=== PATIENT | female | born 1970 | race Caucasian/White ===

== ENCOUNTER 2024-03-07 10:31 | Emergency (ER) | payer MEDICAID, OTHER ==
[~2024-03-07] VITALS: Ht 160 cm; Wt 77.0 kg
[2024-03-07 11:36] VITALS: BP 113/84; PULSE 100; RESP 16; TEMP 96.8; O2SAT 96
[2024-03-07 11:43] LABS: Basophils # (auto) 0.1 10 ^3/uL (0-0.2); Hemoglobin 10.8 g/dL (12.2-16.2); Monocytes # (auto) 0.7 10 ^3/uL (0-1.3); Neutrophils # (auto) 7.7 10 ^3/uL (1.6-8.6)
[2024-03-07 11:44] LABS: Basophils % (auto) 0.5 % (0.0-2.0); Eosinophils # (auto) 0.6 10 ^3/uL (0-0.8); Eosinophils % (auto) 5.8 % (0.0-7.0); Hematocrit 33.7 % (36.0-46.0); Lymphocytes # (auto) 1.8 10 ^3/uL (0.4-5.4); Lymphocytes % (auto) 16.4 % (10.0-50.0); Mean Corpuscular Volume 74.9 fL (80.0-100.0); Monocytes % (auto) 6.4 % (0.0-12.0); Neutrophils % (auto) 70.9 % (37.0-80.0); Red Cell Distribution Width 17.2 % (11.8-14.3); White Blood Cell 10.9 10^3/uL (4.4-10.8)
[2024-03-07 11:54] LABS: Chloride 105 mmol/L (98-107); Potassium 4.2 mmol/L (3.5-5.1); Sodium 139 mmol/L (136-145)
[2024-03-07 11:55] LABS: Anion Gap 5 (5-15); Calcium 9.6 mg/dL (8.5-10.1); Carbon Dioxide 29 mmol/L (20-30)
[2024-03-07 12:00] LABS: BUN/Creatinine Ratio 15.2 (10.0-20.0); Blood Urea Nitrogen 12 mg/dL (9-23); Glucose 112 mg/dL (74-106)
[2024-03-07] MEDS ORDERED: AMOX500T86 PO (12:11)
[2024-03-07] MEDS ORDERED: PROM1SOL4 PO (12:11)
== END 2024-03-07 12:21 | disposition home or self-care (01) ==
LOC: ER 10:31
DX: J20.9 Acute bronchitis, unspecified (principal); R91.8 Other nonspecific abnormal finding of lung field; I10 Essential (primary) hypertension; E78.5 Hyperlipidemia, unspecified
CPT/HCPCS: 36415; 71046; 80048; 85025

== ENCOUNTER 2024-04-07 01:56 | Emergency (ER) | payer MEDICAID ==
[~2024-04-07] VITALS: Ht 160 cm; Wt 77.3 kg
[~2024-04-07 01:56] MED LIST: AMOX500T86 PO; PROM1SOL4 PO
[2024-04-07 06:12] LABS: Chloride 100 mmol/L (98-107); Potassium 4.4 mmol/L (3.5-5.1); Sodium 135 mmol/L (136-145)
[2024-04-07 06:13] LABS: Anion Gap 7 (5-15); Calcium 9.9 mg/dL (8.7-10.4); Carbon Dioxide 28 mmol/L (20-30)
[2024-04-07 06:18] LABS: BUN/Creatinine Ratio 21.8 (10.0-20.0); Blood Urea Nitrogen 17 mg/dL (9-23); Glucose 148 mg/dL (74-106)
[2024-04-07 06:20] LABS: Basophils # (auto) 0 10 ^3/uL (0-0.2); Basophils % (auto) 0.3 % (0.0-2.0); Eosinophils # (auto) 0.3 10 ^3/uL (0-0.8); Eosinophils % (auto) 2.7 % (0.0-7.0); Hemoglobin 10.6 g/dL (12.2-16.2); Lymphocytes # (auto) 1.1 10 ^3/uL (0.4-5.4); Lymphocytes % (auto) 10.1 % (10.0-50.0); Mean Corpuscular Hemoglobin 22.8 pg (28.0-32.0); Mean Corpuscular Hgb Conc. 31.1 g/dL (32.0-36.0); Mean Corpuscular Volume 73.2 fL (80.0-100.0); Monocytes # (auto) 0.7 10 ^3/uL (0-1.3); Monocytes % (auto) 5.9 % (0.0-12.0); Neutrophils # (auto) 9.2 10 ^3/uL (1.6-8.6); Red Blood Cells 4.64 10^6/uL (4.0-5.20); Red Cell Distribution Width 16.5 % (11.8-14.3); White Blood Cell 11.4 10^3/uL (4.4-10.8)
[2024-04-07 06:24] LABS: Prothrombin Time 10.6 sec (9.3-11.8)
[2024-04-07 07:32] VITALS: BP 119/95; PULSE 101; RESP 15; TEMP 98.8; O2SAT 97
== END 2024-04-07 07:35 | disposition home or self-care (01) ==
LOC: ER 01:56
DX: C34.32 Malignant neoplasm of lower lobe, left bronchus or lung (principal); R04.2 Hemoptysis; M06.9 Rheumatoid arthritis, unspecified; F32.A Depression, unspecified; F41.9 Anxiety disorder, unspecified; E78.5 Hyperlipidemia, unspecified; I10 Essential (primary) hypertension; Z88.8 Allergy status to other drugs, medicaments and biological substances; Z88.2 Allergy status to sulfonamides
CPT/HCPCS: 36415; 71046; 80048; 85025; 85610

== ENCOUNTER 2024-05-28 15:56 | Emergency (ER) | payer MEDICAID ==
[~2024-05-28] VITALS: Ht 160 cm; Wt 3.3 kg
[2024-05-28 19:51] LABS: Basophils # (auto) 0 10 ^3/uL (0-0.2); Basophils % (auto) 0.5 % (0.0-2.0); Eosinophils # (auto) 0.3 10 ^3/uL (0-0.8); Eosinophils % (auto) 3.1 % (0.0-7.0); Hematocrit 30.7 % (36.0-46.0); Hemoglobin 9.8 g/dL (12.2-16.2); Lymphocytes # (auto) 1.4 10 ^3/uL (0.4-5.4); Lymphocytes % (auto) 14.7 % (10.0-50.0); Mean Corpuscular Hemoglobin 22.4 pg (28.0-32.0); Mean Corpuscular Hgb Conc. 31.8 g/dL (32.0-36.0); Mean Corpuscular Volume 70.4 fL (80.0-100.0); Monocytes # (auto) 0.5 10 ^3/uL (0-1.3); Monocytes % (auto) 5.2 % (0.0-12.0); Neutrophils # (auto) 7.4 10 ^3/uL (1.6-8.6); Neutrophils % (auto) 76.5 % (37.0-80.0); Red Blood Cells 4.36 10^6/uL (4.0-5.20); Red Cell Distribution Width 16.9 % (11.8-14.3); White Blood Cell 9.7 10^3/uL (4.4-10.8)
[2024-05-28 20:02] LABS: Platelet Count (auto) 801 10^3/uL (140-450)
[2024-05-28 20:10] LABS: Alanine Aminotransferase 20 U/L (7-40); Albumin 3.8 g/dL (3.2-4.8); Alkaline Phosphatase 188 U/L (46-116); Anion Gap 7 (5-15); Aspartate Aminotransferase 10 U/L (13-40); BUN/Creatinine Ratio 20.5 (10.0-20.0); Bilirubin, Total 0.2 mg/dL (0.2-1.0); Blood Urea Nitrogen 18 mg/dL (9-23); Calcium 9.7 mg/dL (8.7-10.4); Carbon Dioxide 28 mmol/L (20-30); Chloride 102 mmol/L (98-107); Glucose 123 mg/dL (74-106); Sodium 137 mmol/L (136-145); Total Protein 7.7 g/dL (5.7-8.2)
[2024-05-28 20:16] LABS: INR 1.04 (0.9-1.15); Partial Thromboplastin Time 26.5 SEC (24.5-34.5)
[2024-05-28 20:24] LABS: Platelet Estimate Markedly Increased
[2024-05-28 20:29] LABS: Hypochromia Moderate
[2024-05-28 22:48] VITALS: BP 130/70; TEMP 99.6
[2024-05-28 22:53] VITALS: PULSE 115; RESP 16; O2SAT 96
== END 2024-05-28 23:02 | disposition home or self-care (01) ==
LOC: ER 15:56
DX: D75.839 Thrombocytosis, unspecified (principal); R79.9 Abnormal finding of blood chemistry, unspecified; E78.5 Hyperlipidemia, unspecified; I10 Essential (primary) hypertension; Z88.2 Allergy status to sulfonamides; Z79.899 Other long term (current) drug therapy; Z79.01 Long term (current) use of anticoagulants
CPT/HCPCS: 36415; 71045; 71275; 80053; 83880; 84484; 85025; 85379; 85610; 85730

== ENCOUNTER 2025-01-26 10:41 | Emergency (ER) | payer MEDICAID ==
[~2025-01-26] VITALS: Ht 160 cm; Wt 56.8 kg
[2025-01-26 10:52] VITALS: TEMP 97.4
--- NOTE | 2025-01-26 11:19 | ED.PDOC ---
GI ASSESSMENT HPI Comments 54 year old female presents to the ED with a chief complaint of abdominal pain onset 1 day. Patient states she has been experiencing abdominal pain as well as nausea/vomiting since yesterday. Patient has a hip replacement scheduled for 02/11/25, is currently seen by pain management, states medication was recently changed. PMHx HTN, HLD, arthritis, anxiety, cancer, depression. Denies chest pain, shortness of breath, dizziness, headache, dysuria, hematuria, diarrhea, fevers, chills. No other symptoms or modifying factors present at this time. Chief Complaint: Abdominal Pain Time Seen by MD: 11:07 Primary Care Provider: matilde Moya Notes: Medications, Allergies Allergies: Coded Allergies: Cefuroxime (Verified Adverse Reaction, Intermediate, HIVES, 05/12/12) Sulfamethoxazole w/Trimethoprim (Verified Adverse Reaction, Intermediate, HIVES, 05/12/12) Home Meds Active Scripts Promethazine-Dm (Promethazine Dm 6.25-15 mg/5Ml) 1 Mandi Mandi, 5 ML PO TID, #160 ML Prov:BERNICE JOHN 03/07/24 Amoxicillin & Pot Clavulanate (Augmentin) 500 Mg Tab, 1 TAB PO BID, #20 TAB Prov:BERNICE JOHN 03/07/24 Information Source: Patient Mode of Arrival: Ambulatory Timing: Days Duration: Since onset Prehospital treatment: None Quality: Sharp Severity: Moderate Recent: None Recent Hx of: None Pain Location: Diffuse Associated sign and symptoms: Nausea, Vomiting, Abdominal Pain Past Medical History PAST MEDICAL HISTORY: Anxiety, Arthritis, Cancer, Depression, High Lipids, HTN Surgical History: Denies all surgeries [employer]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 History Family History Family History: Reviewed,noncontributory to illness Social History Smoker: Non-Smoker Alcohol: Denies ETOH Use Drugs: Denies Drug Use Lives In: Home Constitutional: denies: chills, diaphoresis, fatigue, fever, malaise, sweats, weakness, others EENTM: denies: blurred vision, double vision, ear bleeding, ear discharge, ear drainage, ear pain, ear ringing, eye pain, eye redness, hearing loss, mouth pain, mouth swelling, nasal discharge, nose bleeding, nose congestion, nose pain, photophobia, tearing, throat pain, throat swelling, voice changes, others Respiratory: denies: cough, hemoptysis, orthopnea, SOB at rest, shortness of breath, SOB with excertion, stridor, wheezing, others Cardiovascular: denies: chest pain, dizzy spells, diaphoresis, Dyspnea on exertion, edema, irregular heart beat, left arm pain, lightheadedness, palpitations, PND, syncope, others Gastrointestinal: reports: abdominal pain, nausea, vomiting; denies: abdomen distended, blood streaked bowels, constipated, diarrhea, dysphagia, difficulty swallowing, hematemesis, melena, poor appetite, poor fluid intake, rectal bleeding, rectal pain, others Genitourinary: denies: abnormal vagina bleeding, burning, dyspareunia, dysuria, flank pain, frequency, hematuria, incontinence, pain, , vagina discharge, urgency, others Neurological: denies: dizziness, fainting, headache, left sided numbness, left sided weakness, numbness, paresthesia, pre-existing deficit, right sided numbness, right sided weakness, seizure, speech problems, tingling, tremors, weakness, others Integumetry: denies: bruises, change in color, change in hair/nails, dryness, laceration, lesions, lumps, rash, wounds, others Allergic/Immunocompromised: denies: Difficulty Healing, Frequent Infections, Hives, Itching, others Hematologic/Lymphatic: denies: anemia, blood clots, easy bleeding, easy bruising, swollen glands, others Endocrine: denies: excessive hunger, excessive sweating, excessive thirst, excessive urination, flushing, intolerance to cold, intolerance to heat, unexplained weight gain, unexplained weight loss, others Psychiatric: denies: anxiety, bipolar disorder, depression, hopeless, panic disorder, schizophrenia, sleepless, suicidal, others All Other Systems: Reviewed and Negative Physical Exam General Appearance: No Apparent Distress, Normal HEENT: Normal ENT Inspection, Pharynx Normal, TMs Normal Neck: Full Range of Motion, Non-Tender, Normal, Normal Inspection Respiratory: Chest Non-Tender, Lungs Clear, No Accessory Muscle Use, No Respiratory Distress, Normal Breath Sounds Cardiovascular: No Edema, No JVD, No Murmur, No Gallop, Normal Peripheral Pulses, Regular Rate/Rhythm Breast Exam: Deferred Gastrointestinal: No Organomegaly, Non Tender, No Pulsatile Mass, Normal Bowel Sounds, Soft Genitalia: Deferred Pelvic: Deferred Rectal: Deferred Extremities: No calf tenderness, Normal capillary refill, Normal inspection, Normal range of motion, Non-tender, No pedal edema Musculoskeletal : Apperance: Normal Neurologic: Alert, 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 Was a procedure done?: No GI differential Dx Differential Diagnosis: Appendicitis, Constipation, Gastroenteritis, Urinary Obstruction, UTI, Electrolyte Imbalance, Malnutrition X-Ray, Labs, Meds, VS Vital Signs Date Time Temp Pulse Resp B/P (MAP) Pulse Ox O2 Delivery O2 Flow Rate FiO2 01/26/25 13:13 90 16 122/69 (86) 97 01/26/25 13:13 90 16 122/69 01/26/25 12:39 92 16 155/88 (110) 99 01/26/25 12:39 92 16 155/88 01/26/25 11:42 106 18 97 Room Air* 0 21 01/26/25 11:42 106 18 121/81 (94) 97 01/26/25 10:52 97.4 97 18 118/54 (75) 98 97.4 Lab Test 01/26/25 11:36 01/26/25 11:29 Range/Units White Blood Count 8.1 4.4-10.8 10^3/uL Red Blood Count 4.60 4.0-5.20 10^6/uL Hemoglobin 9.9 L 12.2-16.2 g/dL Hematocrit 31.7 L 36.0-46.0 % Mean Corpuscular Volume 69.0 L 80.0-100.0 fL Mean Corpuscular Hemoglobin 21.4 L 28.0-32.0 pg Mean Corpuscular Hemoglobin Concent 31.0 L 32.0-36.0 g/dL Red Cell Distribution Width 19.9 H 11.8-14.3 % Platelet Count 681 H 140-450 10^3/uL Mean Platelet Volume 6.8 L 6.9-10.8 fL Neutrophils (%) (Auto) 73.4 37.0-80.0 % Lymphocytes (%) (Auto) 15.2 10.0-50.0 % Monocytes (%) (Auto) 5.6 0.0-12.0 % Eosinophils (%) (Auto) 4.8 0.0-7.0 % Basophils (%) (Auto) 1.0 0.0-2.0 % Neutrophils # (Auto) 5.9 1.6-8.6 10 ^3/uL Lymphocytes # (Auto) 1.2 0.4-5.4 10 ^3/uL Monocytes # (Auto) 0.5 0-1.3 10 ^3/uL Eosinophils # (Auto) 0.4 0-0.8 10 ^3/uL Basophils # (Auto) 0.1 0-0.2 10 ^3/uL Nucleated Red Blood Cells 0.0 % Sodium Level 140 136-145 mmol/L Potassium Level 4.2 3.5-5.1 mmol/L Chloride Level 105 98-107 mmol/L Carbon Dioxide Level 26 20-31 mmol/L Anion Gap 9 5-15 Blood Urea Nitrogen 11 9-23 mg/dL Creatinine 0.61 0.550-1.02 mg/dL Glomerular Filtration Rate Calc 107 >90 mL/min BUN/Creatinine Ratio 18.0 10.0-20.0 Serum Glucose 168 H 74-106 mg/dL Calcium Level 9.4 8.7-10.4 mg/dL Troponin I High Sensitivity < 3 L </=34 ng/L Urine Color Light-yellow Yellow Urine Clarity Turbid H Clear Urine pH 7.0 5.0-9.0 Urine Specific [place] 1.013 1.001-1.035 Urine Protein Negative Negative Urine Ketones Negative Negative Urine Blood Negative Negative /uL Urine Nitrite Negative Negative Urine Bilirubin Negative Negative Urine Urobilinogen Normal Negative mg/dL Urine Leukocyte Esterase 1+ Negative /uL Urine RBC 2 0 - 4 /hpf Urine Microscopic WBC 2 0-5 /HPF Urine Squamous Epithelial Cells Few <5 /hpf Urine Bacteria None seen None Seen /hpf Urine Hyaline Casts Few 0 - 2 /lpf Urine Glucose Normal Normal mg/dL Current Medications Medications (Trade) Dose Ordered Sig/Archie Route Start Time Stop Time Status Last Admin Sodium Chloride 1,000 ml @ 1,000 mls/hr Q1H ONCE IV 01/26/25 11:15 01/26/25 12:14 DC 01/26/25 11:41 Ondansetron HCl (Zofran) 4 mg ONCE ONCE IV 01/26/25 11:15 01/26/25 11:16 DC 01/26/25 11:41 Ketorolac Tromethamine (Toradol Injection) 15 mg ONCE ONCE IV 01/26/25 11:15 01/26/25 11:16 DC 01/26/25 11:41 Morphine Sulfate 2 mg ONCE ONCE IV 01/26/25 12:45 01/26/25 12:46 DC 01/26/25 12:39 Time of 1ST Reevaluation: 11:37 Reevaluation 1ST: Unchanged Patient Education/Counseling: Diagnosis, Treatment, Prognosis Family Education/Counseling: No Family Present Additional Information The following tests were ordered, and results were reviewed by me: BMP, CBC, UA, TROP I discussed treatment and results with medical personnel and: patient Comprehensive systems review obtained and negative except for what is stated in the HPI. Departure 1 Departure Time of Disposition: 13:16 (Patient in pain management for chronic pain. Patient feeling better today. We will discharge patient home with outpatient follow up) Impression: Primary Impression: Medication reaction Qualified Codes: T50.905A - Adverse effect of unspecified drugs, medicaments and biological substances, initial encounter Disposition: HOME / SELF CARE / HOMELESS Condition: Stable Additional Instructions: It is important for you to follow up with the pain management doctor. The rest of your workup is benign. Discharged With: Self Critical Care Note Critical Care Time?: No Stability Stability form required: No I personally scribed for ARLIN KUMAR MD ([email or web address]) on 01/26/25 at 11:19. Electronically submitted by Ruth Valdovinos ([email or web address]). I personally scribed for ARLIN KUMAR MD ([email or web address]) on 01/26/25 at 11:20. Electronically submitted by Ruth Valdovinos ([email or web address]). ARLIN KUMAR MD January 26, 2025 11:19
[2025-01-26 11:32] LABS: Urine Bacteria None Seen /hpf (None Seen)
[2025-01-26] MEDS: SODIUM CHLORIDE 0.9% 1,000 ML IV ONE (11:41)
[2025-01-26] MEDS: KETOROLAC TROMETH 30 MG/ML 1ML VIAL IV ONE (11:41)
[2025-01-26] MEDS: ONDANSETRON HCL 4 MG/2 ML VIAL IV ONE (11:41)
[2025-01-26 11:42] VITALS: PULSE 106; RESP 18; O2SAT 97
[2025-01-26 11:43] LABS: Urine Blood Negative /uL (Negative); Urine Clarity Turbid (Clear); Urine Color Light-Yellow (Yellow); Urine Hyaline Cast FEW /lpf (0 - 2); Urine Protein, UAD Negative (Negative); Urine Specific Gravity 1.013 (1.001-1.035); Urine Squamous Epithelial Cell FEW /hpf (<5); Urine Urobilinogen Normal (Negative); Urine WBC 2 /HPF (0-5)
[2025-01-26 11:46] LABS: Basophils # (auto) 0.1 10 ^3/uL (0-0.2); Eosinophils # (auto) 0.4 10 ^3/uL (0-0.8); Lymphocytes # (auto) 1.2 10 ^3/uL (0.4-5.4); Lymphocytes % (auto) 15.2 % (10.0-50.0); Neutrophils # (auto) 5.9 10 ^3/uL (1.6-8.6); Red Cell Distribution Width 19.9 % (11.8-14.3)
[2025-01-26 11:48] LABS: Eosinophils % (auto) 4.8 % (0.0-7.0); Hematocrit 31.7 % (36.0-46.0); Hemoglobin 9.9 g/dL (12.2-16.2); Mean Corpuscular Hemoglobin 21.4 pg (28.0-32.0); Monocytes # (auto) 0.5 10 ^3/uL (0-1.3); Monocytes % (auto) 5.6 % (0.0-12.0); Neutrophils % (auto) 73.4 % (37.0-80.0); Platelet Count (auto) 681 10^3/uL (140-450); White Blood Cell 8.1 10^3/uL (4.4-10.8)
[2025-01-26 12:10] LABS: Chloride 105 mmol/L (98-107); Potassium 4.2 mmol/L (3.5-5.1); Sodium 140 mmol/L (136-145)
[2025-01-26 12:11] LABS: Anion Gap 9 (5-15); Calcium 9.4 mg/dL (8.7-10.4); Carbon Dioxide 26 mmol/L (20-31)
[2025-01-26 12:16] LABS: Blood Urea Nitrogen 11 mg/dL (9-23)
[2025-01-26 12:17] LABS: Glucose 168 mg/dL (74-106)
[2025-01-26] MEDS: MORPHINE SULFATE INJ 2 MG/ml SYRG IV ONE (12:39)
[2025-01-26 13:13] VITALS: BP 122/69; PULSE 90; RESP 16; O2SAT 97
== END 2025-01-26 13:30 | disposition home or self-care (01) ==
LOC: ER 10:41
DX: R11.2 Nausea with vomiting, unspecified (principal); T50.905A Adverse effect of unspecified drugs, medicaments and biological substances, initial encounter; I10 Essential (primary) hypertension; E78.5 Hyperlipidemia, unspecified; M19.90 Unspecified osteoarthritis, unspecified site; F41.9 Anxiety disorder, unspecified; F32.A Depression, unspecified; Z88.1 Allergy status to other antibiotic agents; Z88.2 Allergy status to sulfonamides; Y92.9 Unspecified place or not applicable
CPT/HCPCS: 36415; 80048; 81001; 84484; 85025; 96361; 96374; 96375; 99284; J1885; J2270; J2405; J7030

== ENCOUNTER → 2025-02-17 | Day surgery (SDC) | payer MEDICAID ==
[2025-02-12 13:50] LABS: Urine Bacteria None Seen /hpf (None Seen)
[2025-02-12 14:13] LABS: Basophils # (auto) 0 10 ^3/uL (0-0.2); Lymphocytes # (auto) 1.1 10 ^3/uL (0.4-5.4); Monocytes # (auto) 0.4 10 ^3/uL (0-1.3); Monocytes % (auto) 5.1 % (0.0-12.0); White Blood Cell 7.7 10^3/uL (4.4-10.8)
[2025-02-12 14:14] LABS: Urine Blood Negative /uL (Negative); Urine Clarity Clear (Clear); Urine Color Light-Yellow (Yellow); Urine Protein, UAD Negative (Negative); Urine Specific Gravity 1.013 (1.001-1.035); Urine Squamous Epithelial Cell FEW /hpf (<5); Urine Urobilinogen Normal (Negative); Urine WBC 4 /HPF (0-5); Urine pH 6.5 (5.0-9.0)
[2025-02-12 14:15] LABS: Basophils % (auto) 0.4 % (0.0-2.0); Eosinophils # (auto) 0.3 10 ^3/uL (0-0.8); Eosinophils % (auto) 3.8 % (0.0-7.0); Hematocrit 34.4 % (36.0-46.0); Hemoglobin 10.7 g/dL (12.2-16.2); Lymphocytes % (auto) 13.9 % (10.0-50.0); Mean Corpuscular Hemoglobin 22.3 pg (28.0-32.0); Mean Corpuscular Hgb Conc. 31.2 g/dL (32.0-36.0); Mean Corpuscular Volume 71.4 fL (80.0-100.0); Neutrophils # (auto) 5.9 10 ^3/uL (1.6-8.6); Neutrophils % (auto) 76.8 % (37.0-80.0); Platelet Count (auto) 656 10^3/uL (140-450); Red Blood Cells 4.82 10^6/uL (4.0-5.20); Red Cell Distribution Width 21.5 % (11.8-14.3)
[2025-02-12 14:27] LABS: INR 0.97 (0.9-1.15); Partial Thromboplastin Time 25.9 SEC (24.5-34.5); Prothrombin Time 10.3 sec (9.3-11.8)
[2025-02-12 14:43] LABS: Albumin 4.3 g/dL (3.2-4.8); Anion Gap 10 (5-15); BUN/Creatinine Ratio 19.1 (10.0-20.0); Blood Urea Nitrogen 13 mg/dL (9-23); Calcium 9.4 mg/dL (8.7-10.4); Carbon Dioxide 27 mmol/L (20-31); Chloride 102 mmol/L (98-107); Potassium 3.9 mmol/L (3.5-5.1); Sodium 139 mmol/L (136-145); Total Protein 7.5 g/dL (5.7-8.2)
[2025-02-12 14:44] LABS: Alanine Aminotransferase < 9 U/L (7-40); Alkaline Phosphatase 122 U/L (46-116); Aspartate Aminotransferase 9 U/L (13-40); Bilirubin, Total 0.2 mg/dL (0.2-1.0); Glucose 110 mg/dL (74-106)
[~2025-02-17] VITALS: Ht 160 cm; Wt 55.3 kg
[~2025-02-17] MED LIST changes: -AMOX500T86 PO; +BUPIVACAINE W/ EPINEPH 0.5% INJ 50ML MDV IJ ONE; +BUPR150T8 PO; +CEFEPIME 1GM/ 50ML 50 ML IV ONE; +CHOLCAP4 PO; +DOCU-94 PO; +FOLI-119 PO; +HYDR-4491 OR; +HYDR-4798 PO; +HYDROmorphone HCL 2 MG/ML VL/or syr ONE; +LATA0.0020 OP; +METH2.5T PO; +MORPHINE SULF PF 5 MG/10 ML VIAL ONE; +OMEP20TA PO; +ONDA-155 PO; -PROM1SOL4 PO; +PROPOFOL 10 MG/ML 20 ML IV ONE; +ROPIVACAINE 0.5% (5MG/ML) 20ML AMPULE IJ ONE; +ROSU5TAB5 PO; +TRANEXAMIC ACID 20 ML ONE; +TRIA37.586 PO; +VANCOMYCIN HCL 1000 MG VL ONE; +ceFAZolin 2 GM/D5W50ml 50 ML IV ONE; +fentaNYL CITRATE 100 MCG/2 ML VL ONE
[2025-02-17 06:27] VITALS: BP 139/78; PULSE 93; RESP 20; TEMP 97.6; O2SAT 99
== END | disposition home or self-care (01) ==
LOC: SUR 06:13
PROVIDERS: ATTEND Orthopaedic Surgery
DX: M16.11 Unilateral primary osteoarthritis, right hip (principal); Z53.8 Procedure and treatment not carried out for other reasons; E78.5 Hyperlipidemia, unspecified; I10 Essential (primary) hypertension; G43.909 Migraine, unspecified, not intractable, without status migrainosus; F32.9 Major depressive disorder, single episode, unspecified; E11.9 Type 2 diabetes mellitus without complications; Z79.899 Other long term (current) drug therapy; Z79.84 Long term (current) use of oral hypoglycemic drugs; Z98.890 Other specified postprocedural states
CPT/HCPCS: 36415; 80053; 81001; 85025; 85610; 85730; 86850; 86900; 86901; J0690; J0692; J2270; J3370; J2704